=== PATIENT | male | born 1935 | race Caucasian/White ===

== ENCOUNTER 2016-12-31 17:14 | Emergency (ER) | payer MEDICARE, OTHER ==
[~2016-12-31 17:14] MED LIST: ACIDOPHILUS LA1 EACH PO; AQUAPHOR HEALIN50 GM TOP; ARICEPT5 M1 PO; ASPIRIN E.C. 8181 MG PO; ATIVAN0.5 MG PO; ATORVASTATIN CA80 MG PO; AZILECT1 M1 PO; CARBIDOPA & LEV1 TA1 PO; CLARITIN10 MG PO; CLOPIDOGREL75 MG PO; CORDARONE200 M1 PO; DOCUSATE CALCI100 MG PO; DULCOLAX10 M1 RC; ED SEPTRA/2 TAB/BOTT PO; ENALAPRIL5 MG PO; FISH OIL1 IU PO; FLEET ENEM1 BOT/133 RC; FUROSEMIDE20 MG PO; GLUCAGON EMERGEN1 M1 PO; GOOD NEIGH1200 MG/15 PO; IMODIUM A-D2 M2 PO; LANTUS100 U/ML SC; METOPROLOL TART25 MG PO; MIRALAX17 GM PO; MULTIVITAMIN1 CTB PO; NOVOLOG 100U100 U/M1 SC; PRILOSEC 20MG20 MG PO; TYLENOL 325MG325 MG PO; VITAMIN C PUR1000 MG PO; ZETIA 10MG TAB10 MG PO; ZOFRAN4 M2 PO
[2016-12-31 20:45] VITALS: BP 128/57
== END 2016-12-31 20:45 | disposition other institution (70) ==
LOC: ED 17:14
DX: E87.0 Hyperosmolality and hypernatremia (principal); E86.0 Dehydration; E11.8 Type 2 diabetes mellitus with unspecified complications; Z79.4 Long term (current) use of insulin; I50.9 Heart failure, unspecified; F03.90 Unspecified dementia, unspecified severity, without behavioral disturbance, psychotic disturbance, mood disturbance, and anxiety
CPT/HCPCS: A4354

== ENCOUNTER 2016-12-31 20:05 | Inpatient (IN) | payer MEDICARE, OTHER ==
[2016-12-31 20:56] VITALS: BP 128/57
[2016-12-31 21:06] VITALS: BP 128/57
[2016-12-31 23:03] VITALS: BP 167/72
[2017-01-01 02:25] VITALS: BP 152/70
[2017-01-01 06:23] VITALS: BP 122/50
[2017-01-01 11:14] VITALS: BP 131/58
[2017-01-01 15:05] VITALS: BP 143/59
[2017-01-01 18:05] VITALS: BP 143/57
[2017-01-01 23:00] VITALS: BP 132/55
[2017-01-02 03:00] VITALS: BP 106/45
[2017-01-02 06:36] VITALS: BP 160/56
[2017-01-02 11:16] VITALS: BP 122/54
[2017-01-02 15:05] VITALS: BP 132/56
[2017-01-02 18:00] VITALS: BP 98/42
[2017-01-02 22:30] VITALS: BP 124/50
[2017-01-03 02:28] VITALS: BP 110/45
[2017-01-03 06:21] VITALS: BP 121/49
[2017-01-03 10:39] VITALS: BP 130/55
[2017-01-03 12:50] VITALS: BP 130/55
== END 2017-01-03 13:40 | DRG 641 ==
LOC: MED/SURG 20:05
PROVIDERS: ADMIT Nurse Practitioner Primary Care
DX: E87.0 Hyperosmolality and hypernatremia (principal); E86.0 Dehydration; R13.10 Dysphagia, unspecified; Z66 Do not resuscitate; G20 Parkinson's disease; F02.80 Dementia in other diseases classified elsewhere, unspecified severity, without behavioral disturbance, psychotic disturbance, mood disturbance, and anxiety; E11.9 Type 2 diabetes mellitus without complications; I49.9 Cardiac arrhythmia, unspecified; R53.81 Other malaise; I11.0 Hypertensive heart disease with heart failure; I50.9 Heart failure, unspecified; R32 Unspecified urinary incontinence; R15.9 Full incontinence of feces; I25.10 Atherosclerotic heart disease of native coronary artery without angina pectoris; Z79.4 Long term (current) use of insulin; Z99.3 Dependence on wheelchair; Z95.0 Presence of cardiac pacemaker; Z86.73 Personal history of transient ischemic attack (TIA), and cerebral infarction without residual deficits
CPT/HCPCS: J1650; J1815; J1940; J2270; J7040; J7070; Q9967